=== PATIENT | male | born 1965 | race Two or more races ===

== ENCOUNTER 2018-04-22 11:15 | Inpatient (IN) | payer OTHER ==
[~2018-04-22] VITALS: Ht 175.3 cm; Wt 102.1 kg
[~2018-04-22 11:15] MED LIST: AMOX1TAB12 PO; DOCUSATE SODIU100 MG PO; GABAPENTIN800 MG PO; PERCOCET 5-3251 EACH PO; PROSAC PO; RESTORIL30 M1 PO; RESTORIL30 MG PO; SERAQUEL PO; SINGULAIR10 MG PO; TAMS0.4C PO; WELLBUTRIN XL300 MG PO; XANAX2 MG PO
[2018-04-28] MEDS ORDERED: DOCUSATE SODIU100 MG PO (09:43)
[2018-04-28] MEDS ORDERED: RESTORIL30 M1 PO (09:44)
[2018-04-28] MEDS ORDERED: PERCOCET 5-3251 EACH PO (09:44)
== END 2018-04-28 12:38 | disposition home or self-care (01) | DRG 454 ==
LOC: PED 04-27 02:30 → O/R 04-27 02:30 → SURH 04-27 07:00 → PED 04-27 11:02 → SURH 04-27 11:15 → PED 04-28 12:38
PROVIDERS: Orthopaedic Surgery Orthopaedic Surgery of the Spine
PROC: 0RG2071 Fusion of 2 or more Cervical Vertebral Joints with Autologous Tissue Substitute, Posterior Approach, Posterior Column, Open Approach (ICD-10-PCS; 2018-04-27)
PROC: 0RT30ZZ Resection of Cervical Vertebral Disc, Open Approach (ICD-10-PCS; 2018-04-27)
PROC: 07DS3ZZ Extraction of Vertebral Bone Marrow, Percutaneous Approach (ICD-10-PCS; 2018-04-27)
PROC: 0RG20A0 Fusion of 2 or more Cervical Vertebral Joints with Interbody Fusion Device, Anterior Approach, Anterior Column, Open Approach (ICD-10-PCS; principal; 2018-04-27 07:00)
DX: M50.01 Cervical disc disorder with myelopathy, high cervical region (principal); M47.12 Other spondylosis with myelopathy, cervical region

== ENCOUNTER 2019-05-03 05:00 | Day surgery (SDC) | payer OTHER | END 2019-05-03 09:40 | disposition home or self-care (01) | LOC: AMB-ENDOS 05:00 | DX: D12.3 Benign neoplasm of transverse colon (principal) ==

== ENCOUNTER → 2019-07-05 | Outpatient (CLI) | payer OTHER | END | disposition home or self-care (01) | LOC: TOM 07:24 | DX: K56.600 Partial intestinal obstruction, unspecified as to cause (principal); R10.32 Left lower quadrant pain ==